=== PATIENT | female | born 1980 | race Caucasian/White ===

== ENCOUNTER 2017-06-21 19:32 | Emergency (ER) | payer MEDICAID ==
[2017-06-21 19:40] VITALS: TEMP 98.6
--- NOTE | 2017-06-21 19:47 | EDPHY ---
H & P Stated Complaint: Fall, Back injury Time Seen by Provider: 06/21/17 19:46 - Personal History LMP (Females 10-55): 1-7 Days Ago Current Tetanus/Diphtheria Vaccine: Yes Current Tetanus Diphtheria and Acellular Pertussis (TDAP): Yes - Medical/Surgical History Hx Asthma: No Hx Chronic Respiratory Disease: No Hx Diabetes: No Hx Cardiac Disease: No Hx Renal Disease: No Hx Cirrhosis: No Hx Alcoholism: No Hx HIV/AIDS: No Hx Splenectomy or Spleen Trauma: No Other PMH: PMH: disketomy, laminetomy (L3-5) - Social History Smoking Status: Never smoked Constitutional: Initial Vital Signs Temperature (C) 37.0 C 06/21/17 19:37 Heart Rate 108 H 06/21/17 19:37 Respiratory Rate 18 06/21/17 19:37 Blood Pressure 172/112 H 06/21/17 19:37 O2 Sat (%) 100 06/21/17 19:37 O2 Delivery Mode Room Air Allergies/Adverse Reactions: acetaminophen [From Darvocet-N] Allergy (Verified 06/21/17 19:40) amoxicillin [From Augmentin] Allergy (Verified 06/21/17 19:40) clavulanic acid [From Augmentin] Allergy (Verified 06/21/17 19:40) hydrocodone Allergy (Verified 06/21/17 19:40) Penicillins Allergy (Verified 06/21/17 19:40) propoxyphene [From Darvocet-N] Allergy (Verified 06/21/17 19:40) Home Medications: Medication Instructions Recorded CYCLOBENZAPRINE HCL [Flexeril] 5 mg PO TID #10 tab 06/21/17 oxyCODONE IR [Oxycodone Ir (*)] 5 - 10 mg PO Q6 PRN #20 tab 06/21/17 Medical Decision Making - Diagnostics Imaging: Discussed imaging studies w/ call center support representative Radiologist, I viewed and interpreted images myself ED Course/Re-evaluation: CHIEF COMPLAINT: Back pain HISTORY OF PRESENT ILLNESS: The patient is a 36 y/o female who complains of lower back pain secondary to a fall down several stairs today. She has a history chronic back pain and had back surgery two years ago. Following her fall today she states she has lower back and neck pain. She denies hitting her head. Denies chest pain, abdominal pain, weakness, paraesthesias, fever or other pertinent symptoms. REVIEW OF SYSTEMS: A 10 point review of systems was performed and is negative with the exception of the elements mentioned in the history of present illness. PHYSICAL EXAM: HR, BP, O2 Sat, RR. Temp noted General Appearance: Alert, well hydrated, appropriate, and non-toxic appearing. Head: Atraumatic without scalp tenderness or obvious injury Eyes: Pupils equal, round, reactive to light and accommodation, EOMI, no trauma , no injection. Ears: Clear bilaterally, no perforation, normal landmarks Nose: Atraumatic, no rhinorrhea, clear. Throat: Mucus membranes moist. Neck: Supple, 2+ carotid upstroke, nontender, no lymphadenopathy. Respiratory: No retractions, no distress, no wheezes, and no accessory muscle use. Lungs are clear to auscultation bilaterally. Cardiovascular: Regular rate and rhythm, no murmurs, rubs, or gallops. Good capillary refill all extremities. Gastrointestinal: Abdomen is soft, nontender, non-distended, no masses, no rebound, no guarding, no peritoneal signs. Musculoskeletal: Normal active ROM of all extremities, atraumatic. Neurological: Alert, appropriate, and interactive. Non-focal neuro. Skin: No rashes, good turgor, no nodules on palpation. Back: Well healed scar, moderate tenderness to palpation. Past medical history: Chronic back pain Past surgical history: Laminotomy (L3-5), diskectomy Family history: Noncontributory Social history: at bedside, smoker, lives in [place] DIAGNOSTICS/PROCEDURES/CRITICAL CARE TIME: Lumbar spine x-ray: Negative DIFFERENTIAL DIAGNOSIS: The differential diagnosis for the patient's back pain included but was not limited to musculo-skeletal pain, epidural abscess, herniated disk, spinal fracture, and intra-abdominal causes including urinary system. MEDICAL DECISION MAKING: The patient is a 36 y/o female who presents with moderate lower back tenderness secondary to a fall down several stairs today. She has chronic back pain, but denies taking any pain medications at this time. Plan on imaging and pain management. Two tabs of Percocet administered. Reassessed patient and discussed imaging findings. Discussed return precautions and follow up with Dr. Willis, neurosurgeon, in case there is soft tissue damage. Patient is comfortable with this plan. Departure - Departure Disposition: Home, Routine, Self-Care Clinical Impression: Back pain Qualifiers: Back pain location: low back pain Chronicity: unspecified Back pain laterality : midline Sciatica presence: without sciatica Qualified Code(s): M54.5 - Low back pain Chronic back pain Qualifiers: Back pain location: low back pain Back pain laterality: midline Sciatica presence: unspecified whether sciatica present Qualified Code(s): M54.5 - Low back pain Condition: Good Instructions: Chronic Back Pain (ED), Back Pain (ED) Additional Instructions: 1. Take 600mg of ibuprofen every 6-8 hours as needed for pain. Apply ice to sore areas as needed. 2. Take Oxycodone IR as prescribed for severe pain. 3. Take Flexeril as prescribed. 4. Follow up with Dr. Miguel Atwood, neurosurgeon, in the next week for worsening of your symptoms. 5. Return to the ED if you experience numbness, weakness, fever, or severe worsening of your symptoms. Referrals: NONE *PRIMARY CARE P,. [Primary Care Provider] - As per Instructions Catalino Atwood MD [Medical Doctor] - As per Instructions Prescriptions: CYCLOBENZAPRINE HCL [Flexeril] 5 mg PO TID #10 tab oxyCODONE IR [Oxycodone Ir (*)] 5 - 10 mg PO Q6 PRN #20 tab PRN Reason: Pain, Severe Report Scribed for: Forest Hernandez Report Scribed by: Carmencita Houston Date of Report: 06/21/17 Time of Report: 20:05
[2017-06-21] MEDS ORDERED: OXYCODONE/APAP 5/325 TAB PO ONE (20:03)
[2017-06-21] MEDS ORDERED: OXYCODONE/APAP 5/325MG PREPACK#4 BTL TAKEHOME ONE (20:03)
[2017-06-21 21:08] VITALS: BP 128/78; PULSE 88; RESP 16; O2SAT 96
== END 2017-06-21 21:07 | disposition home or self-care (01) ==
DX: S39.92XA Unspecified injury of lower back, initial encounter (principal); G89.29 Other chronic pain; W10.8XXA Fall (on) (from) other stairs and steps, initial encounter